=== PATIENT | male | born 1960 | race Hispanic/Latino ===

== ENCOUNTER 2017-02-15 23:42 | Emergency (ER) | payer BC ==
[2017-02-16] MEDS ORDERED: Ketorolac Tromethamine 60 MG/2 ML VIAL ONE (00:04)
[2017-02-16] MEDS ORDERED: traMADol HCl 50 MG TAB ONE (00:04)
== END 2017-02-16 00:20 | disposition home or self-care (01) ==
LOC: BURERS 23:42
DX: S40.022A Contusion of left upper arm, initial encounter (principal); I10 Essential (primary) hypertension; F41.9 Anxiety disorder, unspecified; F32.9 Major depressive disorder, single episode, unspecified; F17.210 Nicotine dependence, cigarettes, uncomplicated; W22.8XXA Striking against or struck by other objects, initial encounter
CPT/HCPCS: 96372; J1885

== ENCOUNTER 2017-11-15 18:30 | Emergency (ER) | payer BC | END 2017-11-15 19:16 | disposition home or self-care (01) | LOC: BURERS 18:30 | DX: M25.512 Pain in left shoulder (principal); I10 Essential (primary) hypertension; F41.9 Anxiety disorder, unspecified; F32.9 Major depressive disorder, single episode, unspecified; F17.210 Nicotine dependence, cigarettes, uncomplicated; Z79.899 Other long term (current) drug therapy | CPT/HCPCS: 99283 ==